=== PATIENT | female | born 1985 | race African-American/Black ===

== ENCOUNTER 2023-08-09 20:27 | Observation (INO) | payer MEDICAID, SELFPAY ==
[2023-08-09 20:51] VITALS: BMI 26.1
[2023-08-09] MEDS: fentaNYL 50 mcg/mL 1 mL Vial ONE (21:19)
[2023-08-09] MEDS ORDERED: Carboprost 250 MCG/ML AMP IM PRN (21:38)
[2023-08-09] MEDS ORDERED: Promethazine HCl 25 MG/ML VIAL IM PRN (21:38)
[2023-08-09] MEDS ORDERED: Ondansetron PF 4 MG/2 ML Vial IVP PRN (21:38)
[2023-08-09] MEDS ORDERED: Diphenoxylate HCl/Atropine Tablet PO PRN (21:38)
[2023-08-09] MEDS ORDERED: hydrALAZINE 20 MG/ML VIAL SLOW IVP PRN (21:38)
[2023-08-09] MEDS ORDERED: Misoprostol 200 MCG TAB PR PRN (21:38)
[2023-08-09] MEDS: Penicillin G Potassium 5 MILL.UNITS in Sodium Chloride 0.9% 100 ML IVPB SCH (21:42)
[2023-08-09] MEDS: Betamet Acet/Betamet Na Ph 30 MG/5 ML VIAL IM SCH (21:43)
[2023-08-09] MEDS ORDERED: Oxytocin 30 units/NS 500 ML 500 ML IV SCH (21:45)
[2023-08-09] MEDS ORDERED: Penicillin G 2.5 MILL.units 2.5 MILL.UNITS in Premix 1 BAG IVPB SCH (21:45)
[2023-08-09 21:48] LABS: Bilirubin Neg (Negative); Blood, Urine Negative (Negative); Clarity Clear (Clear); Glucose, Urine (Dipstick) Normal (Negative); Ketone, Urine Negative (Negative); Leukocyte 500 (Negative); Nitrite Negative (Negative); Protein, Urine (Dipstick) Negative (Neg-Trace); Urobilinogen Normal mg/dL (Less than 2)
[2023-08-09] MEDS: fentaNYL 50 mcg/mL 1 mL Vial SLOW IVP SCH (21:55)
[2023-08-09 22:01] LABS: Bacteria/HPF Rare-Few HPF (None Seen); CAUTI Indications for Culture Pregnancy; RBC/HPF 0-3 HPF (0-3); Squamous Epithelial 0-3 HPF (0-3); Trichomonas/HPF Rare HPF (None Seen)
[2023-08-09 22:02] LABS: Urine Culture Reflex Yes Yes
[2023-08-09] MEDS: NIFEdipine 10 MG CAP PO SCH (23:05)
[2023-08-09] MEDS: Zolpidem Tartrate 5 MG TAB PO SCH (23:06)
[2023-08-09] MEDS: diphenhydrAMINE 50 MG/ML VIAL IVP SCH (23:20)
[2023-08-09 23:59] LABS: Syphilis Antibody Nonreactive (Nonreactive); Syphilis Antibody Index 0.05 S/CO (<1.00 Non-Reactive)
[2023-08-10 00:01] LABS: HIV (1/2) Antibody/Antigen Non-Reactive (NonReactive); HIV 1/2 INDEX 0.07 S/CO (<1.00)
[2023-08-10 01:19] LABS: Hematocrit 27.8 % (34.9-44.5); Hemoglobin 9.9 g/dL (12.0-15.5)
[2023-08-10] MEDS: Penicillin G 2.5 MILL.units 2.5 MILL.UNITS in Premix 1 BAG IVPB SCH (01:45)
[2023-08-10] MEDS: fentaNYL 50 mcg/mL 1 mL Vial SLOW IVP PRN (03:52)
[2023-08-10] MEDS: NIFEdipine 10 MG CAP PO SCH (05:02)
[2023-08-10 07:39] LABS: Hematocrit 28.3 % (34.9-44.5); Hemoglobin 10.2 g/dL (12.0-15.5); Platelet Count 226 10x3/uL (150-450)
[2023-08-10] MEDS: metroNIDAZOLE 500 MG TAB PO SCH (09:00)
[2023-08-10 13:01] LABS: HBSAB Concentration 174.39 mIU/mL; Hep B Surf AB REACTIVE (NonReactive)
[2023-08-10] MEDS: fentaNYL 50 mcg/mL 1 mL Vial SLOW IVP SCH (16:46)
[2023-08-10] MEDS: Penicillin G Potassium 5 MILL.UNITS VIAL ONE (16:47)
[2023-08-10] MEDS: Lactated Ringer's 1,000 ML IV SCH (16:47)
[2023-08-10] MEDS: NIFEdipine 10 MG CAP ONE (16:48)
[2023-08-10] MEDS: Betamet Acet/Betamet Na Ph 30 MG/5 ML VIAL IM SCH (22:02)
[2023-08-11] MEDS: Lactated Ringer's 1,000 ML IV SCH ×2
[2023-08-11] MEDS: Cyclobenzaprine 10 MG TAB PO PRN (02:42)
[2023-08-11] MEDS: Acetaminophen 325 MG TAB PO PRN (02:42)
[2023-08-11 10:02] VITALS: BP 131/72; TEMP 98.2
[2023-08-11 16:54] LABS: Chlamydia by PCR, Vaginal Swab Not Detected (NotDetected); GC by PCR, Vaginal Swab Not Detected (NotDetected); Tric.vaginalis PCR,Vaginal Sw DETECTED (NotDetected)
== END 2023-08-11 12:55 | disposition home health service (06) ==
LOC: CSHLD/OP 20:27 → CSHLD 22:05 → CSHANTE 08-10 16:20
PROVIDERS: ADMIT Obstetrics & Gynecology; ATTEND Obstetrics & Gynecology
DX: O47.1 False labor at or after 37 completed weeks of gestation (principal); O09.213 Supervision of pregnancy with history of pre-term labor, third trimester; O09.33 Supervision of pregnancy with insufficient antenatal care, third trimester; Z3A.34 34 weeks gestation of pregnancy; Z79.899 Other long term (current) drug therapy
CPT/HCPCS: 36415; 81001; 82570; 84156; 85014; 85018; 85460; 86706; 86762; 86780; 86850; 86900; 86901; 87086; 87389; 87480; 87491; 87510; 87591; 87660; 87661; 96372; 96374; 96375; 96376; G0378; J0702; J1200; J2540; J3010; J7120